=== PATIENT | male | born 1955 | race Caucasian/White ===

== ENCOUNTER → 2017-08-25 | Outpatient (CLI) | payer BC ==
--- NOTE | 2017-08-25 16:53 | US ---
EXAMINATION TYPE: US venous doppler duplex LE RT DATE OF EXAM: 08/25/2017 4:41 PM COMPARISON: NONE CLINICAL HISTORY: I80.9 Phlebitis and thrombophlebitis of unspecified. Pt states right calf pain SIDE PERFORMED: Right TECHNIQUE: The lower extremity deep venous system is examined utilizing real time linear array sonog mely with graded compression, doppler sonography and color-flow sonography. VESSELS IMAGED: External Iliac Vein (EIV) Common Femoral Vein Deep Femoral Vein Greater Saphenous Vein * Femoral Vein Popliteal Vein Small Saphenous Vein * Proximal Calf Veins (* superficial vessels) Right Leg: Negative for DVT, in area of pt's pain posterior calf shows superficial thrombus Attempted to call office, office closed, no other phone number given to tech Grayscale, color doppler, spectral doppler imaging performed of the deep veins of the right lower ext remity. There is normal flow, compressibility, vascular waveforms in the deep veins. IMPRESSION: No ultrasound evidence for acute DVT in the right lower extremity. Presence of thrombus at site of superficial calf vein is consistent with diagnosis of thrombophlebitis.
== END | disposition home or self-care (01) ==
LOC: RADUSWWP 16:17
PROVIDERS: ATTEND Internal Medicine
DX: I82.811 Embolism and thrombosis of superficial veins of right lower extremity (principal)

== ENCOUNTER → 2017-12-16 | Outpatient (CLI) | payer BC ==
--- NOTE | 2017-12-16 08:08 | MR ---
EXAMINATION TYPE: MR lumbar spine wo con DATE OF EXAM: 12/16/2017 COMPARISON: NONE HISTORY: Low back pain per order. Back pain for over 2 years going into bilateral thighs and buttocks per patient. TECHNIQUE: Multiplanar, multisequence imaging of the lumbar spine is performed without IV contrast. FINDINGS: Sagittal images of the lumbar spine show vertebral body heights to appear satisfactory. The re is grade 1 anterolisthesis of L3 on L4 measured 5 to 6 mm sagittal image 7. Multilevel disc desicc ation is present. There is mild to moderate multilevel disc space narrowing with relative sparing of L5-S1 level. There is a moderate to advanced disc space narrowing T12-L1 level is present. Some multi level vacuum disc phenomenon is seen including L4-L5 level. Small scattered posterior disc herniatio ns are seen on sagittal images effacing anterior thecal sac including involvement in the lower thorac ic spine at T11-T12 level. The conus medullaris is slightly low in position ending superior L2 level. No abnormal or suspicious signal is present. The bone marrow signal intensity is within normal limit s. Axial images do not include T11-T12 level where there is posterior disc herniation effacing anterior thecal sac sagittal image 8. Axial images at T12-L1 level show mild to moderate broad disc bulge mildly effacing anterior thecal s ac on axial image 27. Bilateral neural foramina are patent. Mild facet arthropathy bilaterally is pre sent this level. Axial images at the L1-L2 level show mild broad disc bulge mildly effacing anterior thecal sac. Bilat eral neural foramina are patent. Axial images at the L2-L3 level show mild to moderate right greater than left facet degenerative farias ges and ligamentum flavum hypertrophy effacing posterior lateral thecal sac. There is mild to moderat e broad disc bulge effacing anterior thecal sac. There is mild left greater than right anterior-infer ior neural foraminal narrowing at this level identified. Axial images at L3-L4 level show spondylolisthesis. There is moderate to advanced facet degenerative changes and ligament flavum hypertrophy effacing posterior lateral thecal sac. There is additional br oad-based posterior disc protrusion effacing anterior thecal sac. Most prominent spinal canal stenosi s is seen at this level axial image 12. There is mild to moderate right and mild left-sided anterior inferior neural foraminal narrowing noted. Axial images at L4-L5 level show moderate facet degenerative changes and ligament flavum hypertrophy effacing posterior lateral thecal sac on axial image 7. There is mild broad disc bulge with left para central disc protrusion component effacing anterior thecal sac. There is mild to moderate left greate r than right bilateral anterior inferior neural foraminal narrowing. Axial images at L5-S1 level show moderate facet degenerative changes bilaterally. Spinal canal is pre served. Bilateral neural foramina are patent. No suspicious retroperitoneal findings are seen. Paraspinal muscle bulk is maintained. IMPRESSION: Multilevel degenerative changes in the lumbar spine as detailed above, attention to L3-L4 level with spondylolisthesis and degenerative changes contributing to most prominent spinal canal ef facement or stenosis.
== END | disposition home or self-care (01) ==
LOC: RADMRIMAIN 06:00
PROVIDERS: ATTEND Family Medicine
DX: M48.061 Spinal stenosis, lumbar region without neurogenic claudication (principal); M43.16 Spondylolisthesis, lumbar region; M47.816 Spondylosis without myelopathy or radiculopathy, lumbar region
CPT/HCPCS: 72148

== ENCOUNTER → 2018-06-05 | Outpatient (CLI) | payer BC ==
--- NOTE | 2018-06-05 09:16 | US ---
EXAMINATION TYPE: US venous doppler duplex LE DATE OF EXAM: 06/05/2018 8:54 AM COMPARISON: NONE CLINICAL HISTORY: left lower ext, R60.0 edema. SIDE PERFORMED: Bilateral TECHNIQUE: The lower extremity deep venous system is examined utilizing real time linear array sonog mely with graded compression, doppler sonography and color-flow sonography. VESSELS IMAGED: External Iliac Vein (EIV) Common Femoral Vein Deep Femoral Vein Greater Saphenous Vein * Femoral Vein Popliteal Vein Small Saphenous Vein * Proximal Calf Veins (* superficial vessels) Grayscale, color doppler, spectral doppler imaging performed of the deep veins of the lower extremiti es. There is normal flow, compressibility, vascular waveforms. Patient had vein stripping 30 years prior. Right Leg: Negative for DVT Left Leg: Negative for DVT SSV on left not completely compressible, but shows flow. IMPRESSION: 1. No sonographic evidence of deep venous thrombosis within either lower extremity. 2. Incompletely occlusive likely chronic superficial venous thrombosis within the small saphenous vei n.
== END | disposition home or self-care (01) ==
LOC: RADUSWWP 08:14
PROVIDERS: ATTEND Family Medicine
DX: R60.0 Localized edema (principal)
CPT/HCPCS: 93970

== ENCOUNTER → 2022-05-29 | Outpatient (CLI) | payer MEDICARE, BC ==
--- NOTE | 2022-05-29 13:11 | CT ---
EXAMINATION TYPE: CT lumbar spine wo con CT DLP: 827.9 mGycm, Automated exposure control for dose reduction was used. DATE OF EXAM: 05/29/2022 12:42 PM COMPARISON: MRI lumbar spine 12/16/2017. CLINICAL INDICATION:Male, 66 years old with history of M43.16 SPONDYLOLISTHESIS, LUMBAR REGION; back pain TECHNIQUE: Multiple axial images were obtained from the midportion of T11 through the sacroiliac fco nts. Soft tissue and bone windows in coronal and sagittal planes were obtained and reviewed. Contrast used: none. Oral contrast used: none. FINDINGS: Alignment: There are 5 lumbar type vertebral bodies. Grade 1 anterolisthesis of L3 on L4. Bone: No evidence of fracture is identified. Multilevel disc degeneration changes with osteophyte fo rmation, disc space narrowing and Schmorl's nodes. Scattered facet joint arthropathy is also present. Discs: T12-L1: No spinal canal or neural foraminal stenosis is identified. L1-L2: Facet joint arthropathy, osteophytes and disc bulging result in mild spinal canal stenosis and mild bilateral neural foraminal stenosis. L2-L3: Facet joint arthropathy, osteophytes and disc bulging result in moderate spinal canal stenosis and mild bilateral neural foraminal stenosis. L3-L4: Disc uncovering with disc bulging and facet joint arthropathy result in severe spinal canal st enosis. L4-L5: Facet joint arthropathy, osteophytes and disc bulging result in mild spinal canal stenosis an d mild bilateral neural foraminal stenosis. L5-S1: No spinal canal or neural foraminal stenosis is identified. Other: The gallbladder surgically absent. There is mild atherosclerosis of the arterial vasculature f ew scattered clonic diverticula are present. Prominent left periaortic lymph nodes are present measur ing up to 8 mm in short axis. IMPRESSION: 1. No evidence of fracture of the lumbar spine. 2. Severe L3-L4 spinal canal stenosis secondary to grade 1 anterolisthesis and facet joint arthropath y. Moderate spinal canal stenosis at L2-L3. 3. Moderate disc degeneration changes.
== END | disposition home or self-care (01) ==
LOC: RADCTMAIN 12:04
PROVIDERS: ATTEND Physical Medicine & Rehabilitation
DX: M47.26 Other spondylosis with radiculopathy, lumbar region (principal); M51.16 Intervertebral disc disorders with radiculopathy, lumbar region; M43.16 Spondylolisthesis, lumbar region; M48.061 Spinal stenosis, lumbar region without neurogenic claudication
CPT/HCPCS: 72131